=== PATIENT | male | born 1965 | race Caucasian/White ===

== ENCOUNTER → 2019-08-22 09:48 | Outpatient (CLI) | payer BC, SELFPAY ==
--- NOTE | ~2019-08-22 | XR_ITS ---
EXAMINATION: XR orbits min 4V DATE: 08/22/2019 10:30 INDICATION: Metal in the orbit. TECHNIQUE: 2 views of the orbits were obtained. COMPARISON: None. FINDINGS: Bone alignment is normal. No fracture. IMPRESSION: 1. No radiopaque foreign body. Reviewed, dictated and finalized at location A. [employer]
--- NOTE | ~2019-08-22 | MR_ITS ---
EXAMINATION: MR cervical spine wo con EXAM DATE: 08/22/2019 11:00 INDICATION: Cervicalgia, with paresthesia. Right shoulder arm pain and limited range of motion. TECHNIQUE: Multi-sequential, multiplanar MR images of the cervical spine were obtained without contra st. Axial T2, axial T2 MERGE sequence. Sagittal T1, T2, T2 fat saturation images also obtained. Th ere is no prior study for comparison. FINDINGS: There is moderate disc disease at C4-5 and 5-6, mild to moderate at C6-7. There is 2 mm an terolisthesis C4 on C5, 2 mm retrolisthesis C5 on C6. The spinal cord signal intensity and intrinsic morphology is normal. Cervicomedullary junction is normal in appearance. There are no suspicious raiza ow signal abnormalities. Paraspinal soft tissue is unremarkable. Level by level evaluation: C2-C3: Disc does not extend beyond the endplate margin. Uncovertebral joint arthropathy: None. Facet joint arthropathy: Severe right, mild left. Neural foraminal stenosis: No stenosis. Central canal stenosis: No stenosis. C3-C4: Disc does not extend beyond the endplate margin. Uncovertebral joint arthropathy: Mild to moderate bilateral. Facet joint arthropathy: Severe right, mild to moderate left. Neural foraminal stenosis: , Probably moderate to severe right. Mild left Central canal stenosis: No stenosis. C4-C5: Disc does not extend beyond the endplate margin. Uncovertebral joint arthropathy: Mild bilateral. Facet joint arthropathy: Moderate bilateral, partially fused on left. Neural foraminal stenosis: Mild left. Central canal stenosis: No stenosis. C5-C6: There is a mild to moderate diffuse disc bulge. Uncovertebral joint arthropathy: Severe bilateral. Facet joint arthropathy: Moderate to severe bilateral. Neural foraminal stenosis: Moderate to severe bilateral. Central canal stenosis: Mild. C6-C7: There is a mild to moderate diffuse disc bulge. Uncovertebral joint arthropathy: Severe right, moderate to severe left. Facet joint arthropathy: Moderate bilateral. Neural foraminal stenosis: Moderate to severe right, moderate left. Central canal stenosis: Mild. C7-T1: Disc does not extend beyond the endplate margin. Uncovertebral joint arthropathy: None. Facet joint arthropathy: Mild to moderate left, mild right. Neural foraminal stenosis: No stenosis. Central canal stenosis: No stenosis. IMPRESSION: 1. Multilevel spondylosis and significant arthropathy as detailed above. Reviewed, dictated and finalized at location A. [employer]
== END ==
PROVIDERS: PCP Physician Assistant Medical; Visit Provider Physician Assistant Medical
DX: M47.892 Other spondylosis, cervical region (principal)
CPT/HCPCS: 70200; 72141

== ENCOUNTER 2019-12-26 01:09 | Outpatient (CLI) | payer BC, SELFPAY ==
[2019-12-26 18:05] LABS: SARS-CoV-2 RNA PCR Negative
== END 2019-12-26 01:10 | disposition home or self-care (01) ==
LOC: ANHCOVIDDT 01:10
PROVIDERS: PCP Physician Assistant Medical; Visit Provider Internal Medicine Gastroenterology
DX: Z01.812 Encounter for preprocedural laboratory examination (principal); Z11.59 Encounter for screening for other viral diseases
CPT/HCPCS: 87635; C9803; U0003

== ENCOUNTER 2019-12-29 02:51 | Day surgery (SDC) | payer BC, SELFPAY ==
[2019-12-23 14:28] VITALS: BMI 38.5
[2019-12-29 07:46] VITALS: BP 149/96; PULSE 106; RESP 20; TEMP 36.3; O2SAT 95
--- NOTE | 2019-12-29 07:59 | PM.HPGS ---
History of Present Illness History of Present Illness Consent: Risks, benefits, and alternatives have been discussed and questions answered. Patient agrees to proceed with procedure. Chief complaint: Neoplasm Screening Narrative: Juanpablo Tellez is a 54 year old W male Referred for colonoscopy for screening purposes in addition to this the patient had 1 week of hematochezia few weeks ago none since this time. No family history of colon polyps or colon cancer. Patient had no abdominal pain no change in bowel pattern. This is his 1st colonoscopy. [facility] Past Medical History Medical History Hypothyroidism Meds Home Medications and Allergies Home Medications Medication Instructions Recorded Confirmed Type levothyroxine 50 mcg PO QAM 12/24/19 12/24/19 History omega 2-phg-yev-fish oil [Fish Oil] 1 cap PO DAILY 12/24/19 12/29/19 History Allergies Allergy/AdvReac Type Severity Reaction Status Date / Time No Known Allergies Allergy Verified 12/29/19 07:45 Vital Signs Vital Signs - 24 hr 12/29/19 07:46 Temperature 36.3 C L Pulse Rate 106 H Respiratory Rate 20 Blood Pressure 149/96 H Pulse Oximetry 95 Exam Const: Orientation/consciousness: patient oriented x3 Resp: Auscultation: clear to auscultation bilaterally Cardio: Rate: regular rate Rhythm: regular rhythm Heart sounds: no murmurs GI: GI Palp: Yes Soft to palpation, No Tenderness to palpation present (GI), Yes No hepatosplenomegaly present and No Palpable mass present Auscultation: normal bowel sounds Neuro: General: patient oriented x3 and no focal motor deficits Extrem: General: no pedal edema Assessment and Plan Additional Plan screening colonoscopy in average risk patient and history of hematochezia
[2019-12-29] MEDS: LACTATED RINGERS 1,000 ML 150 ML IV CONT (08:03)
--- NOTE | 2019-12-29 08:55 | P.PNAN_ITS ---
Anes - Initial Pre Proc Eval Procedure: Operation Date: 12/29/19 09:00 Proposed Procedures p Screening Colonoscopy - Johnathan Santillan MD Date/Time: 12/29/19 08:55 Surgeon: Johnathan Santillan MD Pre Op Diagnosis: Neoplasm Screening Patient Data Age: 54 Gender: M Height: 6 ft 2 in Weight: 131 kg Last Vital Signs Temp 97.4 F L 12/29/19 07:46 Pulse 106 H 12/29/19 07:46 Resp 20 12/29/19 07:46 BP 149/96 H 12/29/19 07:46 Pulse Ox 95 12/29/19 07:46 Allergies Allergy/AdvReac Type Severity Reaction Status Date / Time No Known Allergies Allergy Verified 12/29/19 07:45 Home Medications Medication Instructions Recorded Confirmed Type levothyroxine 50 mcg PO QAM 12/24/19 12/24/19 History omega 0-qfm-lhm-fish oil [Fish Oil] 1 cap PO DAILY 12/24/19 12/29/19 History Patient hx anesthesia problems: none Family hx anesthesia problems: none [facility] Past Medical History Medical History Hypothyroidism Anes - Eval Final PreProcedure Day of Procedure 12/29/19 08:55 Patient weight: normal Heart: regular rate and rhythm Lungs: clear to auscultation Airway: Mallampati scale class II Neurological: alert and oriented Last oral intake: >/= 8 hours ASA classification: II Emergent: no Anesthetic plan: proceed Anesthesia type and monitoring: general GIVS and standard monitoring Informed Consent: The patient's anesthetic plan and its attendant risks and benefits were discussed with the patient/family/POA. Questions were solicited and answers provided to the satisfaction of the patient/family/POA.
[2019-12-29 10:17] VITALS: BP 102/72; PULSE 92; RESP 18; O2SAT 91
[2019-12-29 10:27] VITALS: BP 116/83; PULSE 86; RESP 18; O2SAT 94
[2019-12-29 10:37] VITALS: BP 123/86; PULSE 75; RESP 20; O2SAT 99
== END 2019-12-29 10:58 | disposition home or self-care (01) ==
PROVIDERS: PCP Physician Assistant Medical; Visit Provider Internal Medicine Gastroenterology
PROC: 0DJD8ZZ Inspection of Lower Intestinal Tract, Via Natural or Artificial Opening Endoscopic (ICD-10-PCS; CPT 45378; principal; 2019-12-29 09:00)
DX: Z12.11 Encounter for screening for malignant neoplasm of colon (principal); D12.2 Benign neoplasm of ascending colon; D12.3 Benign neoplasm of transverse colon; D12.5 Benign neoplasm of sigmoid colon; D12.8 Benign neoplasm of rectum; K63.5 Polyp of colon; K64.1 Second degree hemorrhoids; K64.4 Residual hemorrhoidal skin tags; E03.9 Hypothyroidism, unspecified
CPT/HCPCS: 45385; 45381; 87635; 88305; C9803; J2704; J7120; U0003